=== PATIENT | male | born 1950 | race African-American/Black ===

== ENCOUNTER 2017-04-13 16:58 | Emergency (ER) | payer MEDICARE, MEDICAID ==
[~2017-04-13] VITALS: Ht 182.9 cm; Wt 80.0 kg
[2017-04-13] MEDS ORDERED: ACETAMINOPHEN WITH CODEINE 300/30MG TABLET PO ONE (20:30)
[2017-04-13] MEDS ORDERED: LIDOCAINE HCL 1% 20ML VIAL (Pyxis) INJ MC ONE (20:30)
[2017-04-13] MEDS ORDERED: ENALAPRIL 10MG TABLET PO ONE (20:30)
[2017-04-13] MEDS ORDERED: CLONIDINE 0.1MG TABLET PO ONE (20:30)
[2017-04-13] MEDS ORDERED: TETANUS, DIPHTHERIA, PERTUSSIS VAC/PF 0.5ML (>7YR OLD) IM ONE (20:30)
[2017-04-13] MEDS ORDERED: BACITRACIN ZINC OINT UDPKT TOP ONE ×2 (20:30→22:00)
[2017-04-13 22:03] VITALS: BP 179/107
== END 2017-04-13 22:04 | disposition home or self-care (01) ==
LOC: ER 16:58
DX: S61.412A Laceration without foreign body of left hand, initial encounter (principal); L21.9 Seborrheic dermatitis, unspecified; F17.200 Nicotine dependence, unspecified, uncomplicated; I10 Essential (primary) hypertension; M19.90 Unspecified osteoarthritis, unspecified site; Y09 Assault by unspecified means
CPT/HCPCS: 12001; 90471; 90715; 99284; J3490

== ENCOUNTER 2017-04-21 16:11 | Emergency (ER) | payer MEDICARE, MEDICAID ==
[~2017-04-21] VITALS: Ht 182.9 cm; Wt 87.0 kg
[2017-04-21] MEDS ORDERED: CLON0.1T PO (16:23)
[2017-04-21 17:00] VITALS: BP 168/101
== END 2017-04-21 17:34 | disposition home or self-care (01) ==
LOC: ER 16:42
DX: Z48.02 Encounter for removal of sutures (principal); I10 Essential (primary) hypertension; F32.9 Major depressive disorder, single episode, unspecified; F17.200 Nicotine dependence, unspecified, uncomplicated; Z98.890 Other specified postprocedural states
CPT/HCPCS: 99282